=== PATIENT | male | born 1990 | race Caucasian/White ===

== ENCOUNTER 2018-03-02 09:10 | Emergency (ER) | payer OTHER ==
[2018-03-02 09:42] LABS: BASO % 0.5 % (0.0-1.0); EOS # 0.1 10^3/uL (0.0-0.50); EOS % 1.1 % (0.0-3.0); HEMATOCRIT 50.7 % (42.0-52.0); HEMOGLOBIN 17.9 g/dl (13.5-17.5); LYMPH # 1.9 10^3/uL (1.5-6.5); LYMPH % 25.5 % (24.0-44.0); MEAN CORPUSCULAR HEMOGLOBIN 30.4 pg (27.0-33.0); MEAN CORPUSCULAR HGB CONC 35.3 g/dl (32.0-36.5); MEAN CORPUSCULAR VOLUME 86.1 fl (80.0-96.0); MONO # 0.9 10^3/uL (0.0-0.8); MONO % 11.5 % (0.0-5.0); NEUTROPHILS # 4.5 10^3/uL (1.8-7.7); NEUTROPHILS % 60.7 % (36.0-66.0); PLATELET COUNT, AUTOMATED 228 10^3/uL (150-450); RED BLOOD COUNT 5.89 10^6/uL (4.30-6.10); WHITE BLOOD COUNT 7.5 10^3/uL (4.0-10.0)
[2018-03-02] MEDS ORDERED: NS 1,000 ML IV ONE (09:45)
[2018-03-02 10:01] LABS: INR 0.92; PROTHROMBIN TIME 12.4 SECONDS (12.1-14.4)
--- NOTE | 2018-03-02 10:12 | REP ---
CT Head without contrast HISTORY: Trauma COMPARISON: None There is no intraparenchymal hemorrhage, acute infarct, mass or midline shift. The ventricular system is normal in appearance. There is no extra cerebral collection. There is no fracture. The visualized sinuses are clear. IMPRESSION: There is no intracranial lesion. Electronically Signed by Deyvi Longo MD 03/02/2018 10:03 A
--- NOTE | 2018-03-02 10:15 | REP ---
CT cervical spine without contrast HISTORY: Trauma COMPARISON: None There is no acute fracture or subluxation. There is no disc bulge or herniation. The spinal canal and neural foramina are patent. The intervertebral discs and vertebral bodies are normal in height. IMPRESSION: There is no acute fracture or subluxation. Electronically Signed by Deyvi Longo MD 03/02/2018 10:07 A
[2018-03-02 10:16] LABS: BLOOD UREA NITROGEN 5 MG/DL (7-18); CALCIUM LEVEL 8.9 MG/DL (8.5-10.1); CARBON DIOXIDE LEVEL 26 MEQ/L (21-32); CHLORIDE LEVEL 102 MEQ/L (98-107); CPK CREATINE PHOSPHOKINASE 196 U/L (39-308); CREATININE FOR GFR 0.83 MG/DL (0.70-1.30); ETHYL ALCOHOL (ETHANOL) < 0.003 % (0.000-0.010); FREE T4 1.68 NG/DL (0.76-1.46); GLOMERULAR FILTRATION RATE > 60.0 (>60); GLUCOSE, FASTING 99 MG/DL (70-100); MAGNESIUM LEVEL 2.6 MG/DL (1.8-2.4); MB/CK RELATIVE INDEX 0.61 (< OR =4); POTASSIUM SERUM 3.7 MEQ/L (3.5-5.1); SODIUM LEVEL 135 MEQ/L (136-145); TROPONIN I < 0.02 NG/ML (< 0.10)
--- NOTE | 2018-03-02 10:45 | REP ---
CT CHEST WITHOUT CONTRAST: HISTORY: Trauma. FINDINGS: There is no evidence of pneumothorax or hemothorax. There is no evidence of mediastinal hematoma. Aortic contour is normal. No pericardial effusion is seen. The lung thomas show no focal infiltrate, contusion or laceration. There are some mild emphysematous changes and bullae in the apices. On bone windows, there is no evidence of thoracic, vertebral, rib, sternal or other fracture. IMPRESSION: No active disease. No traumatic abnormality noted. Electronically Signed by Gibran Cabrera MD 03/02/2018 01:48 P
--- NOTE | 2018-03-02 10:47 | REP ---
T-SPINE SERIES: Five views. HISTORY: Trauma. FINDINGS: Lateral, swimmers lateral and frontal views of the thoracic spine show preserved vertebral body heights. Alignment is normal. Pedicles and posterior elements are intact. Paraspinal soft tissues are unremarkable. IMPRESSION: Negative thoracic spine radiographs. No fracture or collapse seen. Electronically Signed by Gibran Cabrera MD 03/02/2018 01:48 P
--- NOTE | 2018-03-02 10:47 | REP ---
LEFT ELBOW, FOUR VIEWS: HISTORY: Trauma. There is no acute fracture or dislocation. The joint space is normal in appearance. IMPRESSION: There is no acute fracture or dislocation. Electronically Signed by Deyvi Longo MD 03/02/2018 11:28 A
--- NOTE | 2018-03-02 10:47 | REP ---
CT abdomen and pelvis without contrast: History: Trauma. 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 There is some spray artifact from the forearms which are held at the patient's side during the scan. The liver and the spleen are normal in size and appear intact and homogeneous. The gallbladder is unremarkable. No pancreatic hematoma or mass lesion is seen. There is a tiny accessory splenule. No adrenal lesion is observed. The kidneys are morphologically intact. No retroperitoneal hematoma or mass lesion is seen. Normal appendix is observed. Small and large bowel loops are unremarkable in the abdomen and pelvis. No mesenteric hematoma is appreciated. No evidence of free air or free fluid. Urinary bladder appears intact. Seminal vesicles and prostate are unremarkable. No abdominal wall defect is seen. Bone window settings show no skeletal fracture. There is a unilateral right-sided L5 spondylolysis without spondylolisthesis. This is not an acute finding. Impression: No traumatic abnormality noted. Unilateral right-sided L5 spondylolysis without spondylolisthesis. Otherwise negative. Electronically Signed by Gibran Cabrera MD 03/02/2018 01:48 P
--- NOTE | 2018-03-02 10:59 | REP ---
LEFT WRIST, FOUR VIEWS: HISTORY: Trauma. There is no acute fracture or dislocation. The joint spaces are normal in appearance. IMPRESSION: There is no acute fracture or dislocation. Electronically Signed by Deyvi Longo MD 03/02/2018 11:28 A
--- NOTE | 2018-03-02 11:01 | REP ---
Lumbar spine series: Five views. History: Trauma. Findings: Five views of the lumbar spine show preserved vertebral body heights. No fracture or collapse is seen. Alignment is normal. Disc spaces are maintained. Sacrum and SI joints are intact. Impression: No traumatic abnormality noted. Electronically Signed by Gibran Cabrera MD 03/02/2018 01:48 P
--- NOTE | 2018-03-02 11:01 | REP ---
Left shoulder: Three views. History: Trauma. Findings: The left glenohumeral and acromioclavicular joints are normally aligned. The scapula is held in a rotated position. No scapular fracture is seen. The visualized left rib cage is intact. Impression: The scapula is held in a somewhat rotated or "winged" position. No fracture or subluxation is seen. Electronically Signed by Gibran Cabrera MD 03/02/2018 01:48 P
[2018-03-02 11:33] LABS: AMPHETAMINES LEVEL URINE NEGATIVE (NEGATIVE); BARBITURATES URINE NEGATIVE (NEGATIVE); BENZODIAZEPINES URINE NEGATIVE (NEGATIVE); CANNABINOIDS URINE POSITIVE (NEGATIVE); COCAINE METABOLITE URINE NEGATIVE (NEGATIVE); METHADONE URINE NEGATIVE (NEGATIVE); OPIATES URINE POSITIVE (NEGATIVE); PHENCYCLIDINE URINE NEGATIVE (NEGATIVE)
[2018-03-02] MEDS ORDERED: ACETAMINOPHEN 325 MG TAB PO ONE (11:45)
[2018-03-02 14:10] VITALS: BP 112/57
--- NOTE | 2018-03-02 18:36 | ECGEPIP ---
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
== END 2018-03-02 14:14 | disposition home or self-care (01) ==
LOC: M ED 09:10 → EDBD 09:10 → M ED 14:14
DX: T14.8XXA Other injury of unspecified body region, initial encounter (principal); V49.9XXA Car occupant (driver) (passenger) injured in unspecified traffic accident, initial encounter; Y92.410 Unspecified street and highway as the place of occurrence of the external cause; Q85.00 Neurofibromatosis, unspecified; Z88.8 Allergy status to other drugs, medicaments and biological substances
CPT/HCPCS: 36415; 70450; 71250; 72072; 72110; 72125; 73030; 73080; 73110; 74176; 80048; 80307; 82550; 82553; 83735; 84439; 84443; 84484; 85025; 85610; 93005; 93041; 94760; 99285; G0480